=== PATIENT | female | born 1995 | race Hispanic/Latino ===

== ENCOUNTER 2017-08-13 16:20 | Emergency (ER) | payer MEDICAID, OTHER ==
[2017-08-13 16:38] VITALS: BP 129/78; PULSE 95; TEMP 98.2; O2SAT 99
[2017-08-13] MEDS ORDERED: Bacitracin 500 Units/gm Oint Foilpak UD ONE ×2 (17:16→17:19)
[2017-08-13] MEDS ORDERED: Bacitracin 500 Units/gm Oint Foilpak UD TOP ONE (17:16)
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
[2017-08-13 19:37] VITALS: RESP 20
== END 2017-08-13 19:37 | disposition home or self-care (01) ==
LOC: C.ER 16:20
DX: S93.402A Sprain of unspecified ligament of left ankle, initial encounter (principal); S80.12XA Contusion of left lower leg, initial encounter; S80.11XA Contusion of right lower leg, initial encounter; Y03.8XXA Other assault by crashing of motor vehicle, initial encounter; Y92.410 Unspecified street and highway as the place of occurrence of the external cause